=== PATIENT | female | born 1960 | race Two or more races ===

== ENCOUNTER 2018-06-26 10:49 | Emergency (ER) | payer SELFPAY ==
[2018-06-26 11:00] VITALS: BMI 25.6
[2018-06-26] MEDS ORDERED: ACETAMINOPHEN 1000 MG/100 ML VIAL (NON FORMULARY) IVPB ONE (11:26)
[2018-06-26] MEDS ORDERED: ONDANSETRON 4 MG/2 ML VIAL IVPUSH ONE (11:28)
[2018-06-26] MEDS ORDERED: ACETAMINOPHEN INJECTION 100 ML IVPB ONE (11:37)
[2018-06-26] MEDS ORDERED: ONDANSETRON 4 MG/2 ML VIAL ONE (11:37)
--- NOTE | 2018-06-26 11:37 | PDOC ---
History of Present Illness <Leticia Simms - Last Filed: 06/26/18 15:34> - General History Source: Patient Exam Limitations: No Limitations - History of Present Illness Initial Comments: 06/26/18 11:30 This is a 57 YOF with h/o known gallbladder stones, appendectomy, GERD, and asthma, who p/w RUQ and epigastric pain fluctuating since yesterday morning, now at 4/10 and radiating up to her throat. She notes that the throat pain feels the same as her prior GERD and feels like a burning, but the abdominal pain is sharp. She late ate yesterday and has vomited about 10 times since yesterday (NBNB) and additionally feels lightheaded. She has not taken any medications for the pain this morning. She denies f/c, diarrhea, constipation, black/bloody stool, shortness of breath, or other symptoms, headache, vision changes, n/t/w, or other symptoms. <Eden Tirado - Last Filed: 06/26/18 18:20> - General Chief Complaint: Lightheaded Stated Complaint: DIZZINESS,VOMITING Time Seen by Provider: 06/26/18 11:18 Past History <Leticia Simms - Last Filed: 06/26/18 15:34> - Past Medical History Asthma: Yes COPD: No GI Disorders: (gallstones) Hypercholesterolemia: Yes - Suicide/Smoking/Psychosocial Hx Smoking History: Never smoked Hx Alcohol Use: No Drug/Substance Use Hx: No <Eden Tirado - Last Filed: 06/26/18 18:20> - Past Medical History Allergies/Adverse Reactions: Allergies Allergy/AdvReac Type Severity Reaction Status Date / Time No Known Allergies Allergy Verified 06/26/18 11:00 Home Medications: Ambulatory Orders Albuterol Sulfate Inhaler - [Ventolin Hfa Inhaler -] 1 - 2 inh PO Q4H PRN Montelukast Sodium [Singulair] 10 mg PO DAILY 06/26/18 Ondansetron [Ondansetron Odt] 8 mg PO BID PRN #10 tab.rapdis 06/26/18 Review of Systems - Review of Systems Able to Perform ROS?: Yes Constitutional: No: Chills, Fever, Unexplained wgt Loss HEENTM: Yes: Throat Pain (burning). No: Nose Congestion Respiratory: No: Cough, Shortness of Breath Cardiac (ROS): Yes: Lightheadedness. No: Chest Pain, Palpitations ABD/GI: Yes: Nausea, Poor Appetite, Vomiting, Other (upper abdominal pain). No : Constipated, Diarrhea : No: Burning, Dysuria Musculoskeletal: No: Back Pain, Neck Pain Integumentary: No: Bruising, Rash Neurological: No: Headache, Numbness, Tingling, Weakness, Dizziness Endocrine: No: Unexplained Weight Gain, Unexplained Weight Loss <Eden Tirado - Last Filed: 06/26/18 18:20> *Physical Exam - Vital Signs Last Vital Signs Temp Pulse Resp BP Pulse Ox 98 F 73 18 120/72 97 06/26/18 13:33 06/26/18 13:42 06/26/18 13:42 06/26/18 13:42 06/26/18 13:42 <Leticia Simms - Last Filed: 06/26/18 15:34> - Vital Signs Last Vital Signs Temp Pulse Resp BP Pulse Ox 98.2 F 89 18 128/78 93 L 06/26/18 10:57 06/26/18 10:57 06/26/18 10:57 06/26/18 10:57 06/26/18 10:57 06/26/18 11:46 GENERAL: nontoxic and well-appearing, nourished, A/Ox4, slightly uncomfortable appearing and standing during H&P but in no distress, speaking in full sentences in Divehi, answers questions appropriately, accompanied by daughter HEENT: PERRLA, EOMI, moist mucous membranes, no posterior pharyngeal erythema, no tonsillar swelling or exudates, no cervical lymphadenopathy NECK: No cervical spine midline ttp or stepoff or deformity, full ROM, supple CARDIOVASCULAR: Regular rate and rhythm, normal S1S2, no MGR, radial and DP pulses 2+ and symmetric, capillary refill <2 seconds, extremities warm and well- perfused Chest wall: Normal appearance, no rash, no bruising, no costal stepoff or deformity, nontender to compression LUNGS/RESPIRATORY: No respiratory distress, normal and symmetric chest movements during respirations, lungs CTA bilaterally, equal breath sounds, no cyanosis, no nail clubbing GI/ABDOMEN: Normal symmetric appearance, normoactive bowel sounds, soft, mild RUQ and epigastric tenderness to palpation, positive Mancilla's sign, no midline pulsatile masses, no palpated organomegaly : No CVA tenderness BACK: No midline ttp or stepoff or deformity of thoracic or lumbar spine EXTREMITIES: distal pulses 2+, warm and well-perfused, no LE edema SKIN: Warm and dry, no pallor, no jaundice, no bruising, no rash, no skin breakdown, no cuts, no lesions NEUROLOGICAL: GCS 15, CN II-XII grossly intact, ambulating with normal gait, moving all extremities, 5/5 strength proximally and distally, no facial droop, no decreased sensation <Tirado,Eden - Last Filed: 06/26/18 18:20> Heart Score/ECG Review #1 Sinus rhythm, rate of 73, normal axis and intervals, TWI in III, no ischemic ST- T changes <CelestinoEden - Last Filed: 06/26/18 18:20> ED Treatment Course - LABORATORY CBC & Chemistry Diagram: 06/26/18 11:50 06/26/18 11:50 - ADDITIONAL ORDERS Additional order review: Laboratory Results 06/26/18 06/26/18 12:40 11:50 Sodium 137 Potassium 4.1 Chloride 105 Carbon Dioxide 26 Anion Gap 6 L BUN 11 Creatinine 0.6 Creat Clearance w eGFR > 60 Random Glucose 95 Calcium 8.6 Phosphorus 3.3 Magnesium 2.0 Total Bilirubin 0.6 AST 20 ALT 31 Alkaline Phosphatase 115 Troponin I < 0.02 Total Protein 6.9 Albumin 3.7 Lipase 80 Urine Color Ltyellow Urine Appearance Clear Urine pH 7.0 Ur Specific [place] 1.015 Urine Protein Negative Urine Glucose (UA) Negative Urine Ketones Trace H Urine Blood Negative Urine Nitrite Negative Urine Bilirubin Negative Urine Urobilinogen Negative Ur Leukocyte Esterase Negative 06/26/18 11:50 RBC 4.36 MCV 88.7 MCHC 33.1 RDW 13.5 MPV 8.0 Neutrophils % 72.7 Lymphocytes % 21.6 Monocytes % 4.8 Eosinophils % 0.3 Basophils % 0.6 - Medications Given in the ED: ED Medications Discontinued Medications Generic Name Dose Route Start Last Admin Trade Name Freq PRN Reason Stop Dose Admin Acetaminophen 1,000 mg 06/26/18 11:26 06/26/18 11:47 Ofirmev Injection - IVPB 06/26/18 11:27 1,000 mg ONCE ONE Administration Famotidine/Sodium Chloride 20 mg in 50 mls @ 100 mls/hr 06/26/18 11:48 11:57 Pepcid 20 Mg Premixed Ivpb - IVPB 06/26/18 12:17 100 mls/hr ONCE ONE Administration Ondansetron HCl 8 mg 06/26/18 11:28 06/26/18 11:56 Zofran Injection IVPUSH 06/26/18 11:29 8 mg ONCE ONE Administration Sodium Chloride 1,000 ml 06/26/18 11:48 06/26/18 11:56 Normal Saline - IV 06/26/18 11:49 1,000 ml ONCE ONE Administration - Consult/PCP Time Called: 14:25 (Called Dr. Arellano service, service alerted Dr. Arellano and stated that he will call back in a few minutes. ) - Additional Consults Time Called: 13:51 (Called Dr. Arellano service (surgery), left a message) Time Called: 14:05 (Paged Dr. Arellano overhead ) <Leticia Simms - Last Filed: 06/26/18 15:34> - LABORATORY CBC & Chemistry Diagram: 06/26/18 11:50 06/26/18 11:50 - RADIOLOGY Radiology Studies Ordered: Category Date Time Status GALLBLADDER US [US] Stat Ultrasound 06/26/18 11:26 Ordered <Eden Tirado - Last Filed: 06/26/18 18:20> Medical Decision Making - Medical Decision Making 06/26/18 11:47 Adult female Pt p/w RUQ abdominal pain. Initial Vital Signs Temp Pulse Resp BP Pulse Ox 98.2 F 89 18 128/78 93 L 06/26/18 10:57 06/26/18 10:57 06/26/18 10:57 06/26/18 10:57 06/26/18 10:57 Exam: As noted in Physical Exam section. DDX IBNLT: cholecystitis (calculous vs.acalculous), choledocholithiasis, cholangitis, pancreatitis, appendicitis, gastritis, PUD, colitis, diverticulitis wwo abscess or perforation, AAA/AD, ACS, renal colic, obstructive uropathy, UTI/pyelonephritis, hernia, SBO, mesenteric/bowel ischemia , bowel perforation, malignancy, ovarian torsion, ovarian cyst, PID, TOA, cervicitis, endometritis, salpingitis, oophoritis, constipation, gas, musculoskeletal, etc. W/U ordered: Labs as noted below, EKG, RUQ US TX ordered: IVF Shruti Brewster EKG: Reviewed; results as noted in ECG Review section. US/ABDOMEN US -LIMITED HISTORY PROVIDED: Right upper quadrant pain. Real time examination of the abdomen demonstrates the following: The gallbladder is normal in size and does contain multiple calculi. There is no evidence of intra or extrahepatic biliary duct dilatation. The liver is normal in size with no intrahepatic masses seen. Hepatopedal flow is documented within the main portal vein. The pancreas is normal in size and texture with no pancreatic masses identified. The tail of the pancreas was not well visualized due to overlying bowel gas. There is no evidence of hydronephrosis or acute abnormalities of the right kidney. There is no evidence of AAA. The IVC is patent. IMPRESSION: Essentially normal abdominal sonogram. Laboratory Tests 06/26/18 06/26/18 06/26/18 11:50 11:50 12:40 WBC 7.3 RBC 4.36 Hgb 12.8 Hct 38.7 MCV 88.7 MCH 29.3 MCHC 33.1 RDW 13.5 Plt Count 255 MPV 8.0 Absolute Neuts (auto) 5.3 Neutrophils % 72.7 Lymphocytes % 21.6 Monocytes % 4.8 Eosinophils % 0.3 Basophils % 0.6 Nucleated RBC % 0 Sodium 137 Potassium 4.1 Chloride 105 Carbon Dioxide 26 Anion Gap 6 L BUN 11 Creatinine 0.6 Creat Clearance w eGFR > 60 Random Glucose 95 Calcium 8.6 Phosphorus 3.3 Magnesium 2.0 Total Bilirubin 0.6 AST 20 ALT 31 Alkaline Phosphatase 115 Troponin I < 0.02 Total Protein 6.9 Albumin 3.7 Lipase 80 Urine Color Ltyellow Urine Appearance Clear Urine pH 7.0 Ur Specific [place] 1.015 Urine Protein Negative Urine Glucose (UA) Negative Urine Ketones Trace H Urine Blood Negative Urine Nitrite Negative Urine Bilirubin Negative Urine Urobilinogen Negative Ur Leukocyte Esterase Negative Reassessment: Patient still mildly tender on repeat exam, states pain has improved, still small amount residual pain. Vital Signs Temperature 98 F 06/26/18 13:33 Pulse Rate 73 06/26/18 13:42 Respiratory Rate 18 06/26/18 13:42 Blood Pressure 120/72 06/26/18 13:42 O2 Sat by Pulse Oximetry (%) 97 06/26/18 13:[address] Donato who notes no GB wall thickening, pericholecystic fluid , significant GB distention, etc. Very little concern for cholecystitis or choledocholithiasis at this time based on this study. Patient states pain resolved, repeat exam is benign, comfortable going home. She states she is mildly dizzy, she get this symptom frequently and it is no different now than prior. She requests meclizine as she states this has provided her relief in the past. She also is not vomiting, has tolerated PO orange juice and turkey sandwich. Vital Signs Temperature 98 F 06/26/18 13:33 Pulse Rate 70 06/26/18 16:35 Respiratory Rate 16 06/26/18 16:35 Blood Pressure 142/76 06/26/18 16:35 O2 Sat by Pulse Oximetry (%) 97 06/26/18 16:35 The Pt has gotten significant relief of symptoms while in the ED. Workup is not concerning for emergency-level pathology at this time. They are appropriate for discharge with close outpatient follow up. They are comfortable with this plan and will follow up with their primary care provider in 1-3 days. They will take Motrin and/or Tylenol for pain. Referral information is given for Dr. Arellano. Specific return precautions are discussed and they will come back to the ER if necessary. <TiradoEden - Last Filed: 06/26/18 18:20> *DC/Admit/Observation/Transfer <Leticia Simms - Last Filed: 06/26/18 15:34> - Discharge Dispostion Decision to Admit order: No <Tirado,Eden - Last Filed: 06/26/18 18:20> Diagnosis at time of Disposition: Lightheadedness Abdominal pain Qualifiers: Abdominal location: unspecified location Qualified Code(s): R10.9 - Unspecified abdominal pain Vomiting Qualifiers: Vomiting type: unspecified Vomiting Intractability: non-intractable Nausea presence: with nausea Qualified Code(s): R11.2 - Nausea with vomiting, unspecified Cholelithiasis Qualifiers: Cholelithiasis location: gallbladder Cholecystitis presence: without cholecystitis Biliary obstruction: with biliary obstruction Qualified Code(s): K80.21 - Calculus of gallbladder without cholecystitis with obstruction - Discharge Dispostion Disposition: HOME Condition at time of disposition: Stable - Prescriptions Prescriptions: Ondansetron [Ondansetron Odt] 8 mg PO BID PRN #10 tab.rapdis PRN Reason: Nausea And/Or Vomiting - Referrals Referrals: Blake Brownlee [Primary Care Provider] - Jeffrey Arellano MD [Staff Physician] - - Patient Instructions Printed Discharge Instructions: DI for Abdominal Pain-Adult Additional Instructions: YOU WERE SEEN IN THE ER FOR ABDOMINAL PAIN. WE DID AN EXAM, LABS, AN ULTRASOUND , AND AN ELECTROCARDIOGRAM. WE GAVE YOU MEDICINES WHICH DID HELP YOUR SYMPTOMS. AFTER OUR ASSESSMENT, WE DO NOT BELIEVE YOU ARE HAVING A MEDICAL EMERGENCY AT THIS TIME, AND WE BELIEVE YOU ARE SAFE TO GO HOME. PLEASE FOLLOW UP WITH YOUR REGULAR PCP IN 1-3 DAYS. CALL THEIR CLINIC, TELL THEM YOU WERE SEEN IN THE ER, AND TELL THEM YOU NEED A FOLLOW-UP. YOU SHOULD ALSO FOLLOW UP WITH OUR SURGEON DR. ARELLANO, WHOSE INFORMATION WE ARE INCLUDING IN THIS PACKET. PLEASE CALL HIS OFFICE AND MAKE AN APPOINTMENT FOR NEXT WEEK TO TALK ABOUT YOUR GALLBLADDER BECAUSE YOU DO HAVE GALLBLADDER STONES. PLEASE TAKE TYLENOL AND NAPROXEN FOR PAIN, AND TAKE ZOFRAN FOR NAUSEA/VOMITING (WE ARE SENDING AN ELECTRONIC PRESCRIPTION TO YOUR PHARMACY). IF YOU HAVE ANY NEW OR WORSENING SYMPTOMS ( ESPECIALLY FEVER, YELLOWISH COLORATION OF YOUR SKIN, VOMITING THAT YOU CANNOT CONTROL WITH THE ZOFRAN, BLOOD IN THE VOMIT, WHITE OR BLOODY STOOL, OR WORSENING ABDOMINAL PAIN THAT YOU CANNOT CONTROL WITH TYLENOL AND NAPROXEN) PLEASE COME BACK TO THE ER AT ANY TIME (24 HOURS A DAY). IF YOU ARE HAVING SEVERE OR LIFE THREATENING SYMPTOMS, OR SYMPTOMS THAT MAKE IT UNSAFE TO DRIVE OR HAVE SOMEONE DRIVE YOU, PLEASE CALL 911. PLEASE RECOVERER YOUR ZOFRAN AT THE [facility] ON [facility] ABOUT [address] AWAY. Print Language: IRISH - Post Discharge Activity Forms/Work/School Notes: Back to Work
[2018-06-26] MEDS ORDERED: FAMOTIDINE 20 MG/50 ML IVPB 20 MG/50 ML MG IVPB ONE (11:48)
[2018-06-26] MEDS ORDERED: SODIUM CHLORIDE 0.9% 500 ML INFUS.BAG IV ONE (11:48)
[2018-06-26 12:01] LABS: BASO % 0.6 % (0-2.0); EOS % 0.3 % (0-4.5); HEMATOCRIT 38.7 % (32.4-45.2); HEMOGLOBIN 12.8 GM/dL (10.7-15.3); LYMPH % 21.6 % (8-40); MCH 29.3 pg (25.7-33.7); MCHC 33.1 g/dl (32.0-36.0); MEAN CELL VOLUME 88.7 fl (80-96); MONO % 4.8 % (3.8-10.2); NEUT % 72.7 % (42.8-82.8); PLATELET COUNT 255 K/MM3 (134-434); RBC 4.36 M/mm3 (3.60-5.2); RDW 13.5 % (11.6-15.6); WHITE BLOOD COUNT 7.3 K/mm3 (4.0-10.0)
--- NOTE | 2018-06-26 12:07 | PDOC ---
Attending Attestation - Resident Resident Name: Tirado,Eden - ED Attending Attestation I have performed the following: I have examined & evaluated the patient, The case was reviewed & discussed with the resident, I agree w/resident's findings & plan, Exceptions are as noted - HPI HPI: 06/26/18 12:04 57-year-old female with history of asthma, hyperlipidemia, biliary colic, hyperlipidemia presents with right upper quadrant pain since yesterday. The patient reported persistent pain with nausea and multiple episodes of vomiting. No fevers or chills. Decreased appetite endorsed. - Physicial Exam PE: 06/26/18 12:05 GENERAL: Awake, alert, and fully oriented, in no acute distress HEAD: No signs of trauma EYES: EOMI, sclera anicteric, conjunctiva clear ENT: Auricles normal inspection, hearing grossly normal, nares patent,Moist mucosa NECK: Normal ROM, supple ABDOMEN: Soft, No guarding, no rebound. No masses. TTP RUQ. Mancilla sign positive. EXTREMITIES: Normal range of motion, no edema. No clubbing or cyanosis. No cords, erythema, or tenderness NEUROLOGICAL: Cranial nerves II through XII grossly intact. Normal speech, normal gait SKIN: Warm, Dry, normal turgor, no rashes or lesions noted. - Medical Decision Making 06/26/18 12:42 Vital Signs Temp Pulse Resp BP Pulse Ox 98.2 F 89 18 128/78 93 L 06/26/18 10:57 06/26/18 10:57 06/26/18 10:57 06/26/18 10:57 06/26/18 10:57 I suspect patient likely has biliary colic versus gastritis versus pancreatitis versus less likely acute corner syndrome. We'll obtain labs, urinalysis, right upper quadrant ultrasound. EKG is unremarkable and reassuring. Pain control, reassess. 06/26/18 13:56 CBC, BMP 06/26/18 11:50 06/26/18 11:50 CMP Sodium 137 mmol/L (136-145) 06/26/18 11:50 Potassium 4.1 mmol/L (3.5-5.1) 06/26/18 11:50 Chloride 105 mmol/L (98-107) 06/26/18 11:50 Carbon Dioxide 26 mmol/L (21-32) 06/26/18 11:50 Anion Gap 6 MMOL/L (8-16) L 06/26/18 11:50 BUN 11 mg/dL (7-18) 06/26/18 11:50 Creatinine 0.6 mg/dL (0.55-1.3) 06/26/18 11:50 Creat Clearance w eGFR > 60 (>60) 06/26/18 11:50 Random Glucose 95 mg/dL (74-106) 06/26/18 11:50 Calcium 8.6 mg/dL (8.5-10.1) 06/26/18 11:50 Phosphorus 3.3 mg/dL (2.5-4.9) 06/26/18 11:50 Magnesium 2.0 mg/dL (1.8-2.4) 06/26/18 11:50 Total Bilirubin 0.6 mg/dL (0.2-1) 06/26/18 11:50 AST 20 U/L (15-37) 06/26/18 11:50 ALT 31 U/L (13-61) 06/26/18 11:50 Alkaline Phosphatase 115 U/L (45-117) 06/26/18 11:50 Troponin I < 0.02 ng/ml (0.00-0.05) 06/26/18 11:50 Total Protein 6.9 g/dl (6.4-8.2) 06/26/18 11:50 Albumin 3.7 g/dl (3.4-5.0) 06/26/18 11:50 Lipase 80 U/L (73-393) 06/26/18 11:50 Urine Test Results Urine Color Ltyellow 06/26/18 12:40 Urine Appearance Clear 06/26/18 12:40 Urine pH 7.0 (5.0-8.0) 06/26/18 12:40 Ur Specific [place] 1.015 (1.001-1.035) 06/26/18 12:40 Urine Protein Negative (NEGATIVE) 06/26/18 12:40 Urine Glucose (UA) Negative (NEGATIVE) 06/26/18 12:40 Urine Ketones Trace (NEGATIVE) H 06/26/18 12:40 Urine Blood Negative (NEGATIVE) 06/26/18 12:40 Urine Nitrite Negative (NEGATIVE) 06/26/18 12:40 Urine Bilirubin Negative (<2.0 mg/dL) 06/26/18 12:40 Ur Leukocyte Esterase Negative (NEGATIVE) 06/26/18 12:40 Ultrasound demonstrates gallstones but no evidence of acute cholecystitis. Pt reports feeling well and without pain. Will discharge as biliary colic. Will give referral to general surgery. Heart Score/ECG Review #1 ECG reviewed & interpreted by me at: 12:00 06/26/18 12:02 NSR 73, TWI III, no std/butch, normal axis, normal intervals, QTC 420 msec
[2018-06-26 12:31] LABS: ALBUMIN 3.7 g/dl (3.4-5.0); ALK PHOS 115 U/L (45-117); ANION GAP 6 MMOL/L (8-16); BILIRUBIN,TOTAL 0.6 mg/dL (0.2-1); BLOOD UREA NITROGEN 11 mg/dL (7-18); CALCIUM 8.6 mg/dL (8.5-10.1); CHLORIDE 105 mmol/L (98-107); CO2 26 mmol/L (21-32); CREATININE 0.6 mg/dL (0.55-1.3); GLUCOSE,RANDOM 95 mg/dL (74-106); LIPASE 80 U/L (73-393); PHOSPHOROUS 3.3 mg/dL (2.5-4.9); POTASSIUM 4.1 mmol/L (3.5-5.1); SGOT/AST 20 U/L (15-37); SGPT/ALT 31 U/L (13-61); SODIUM 137 mmol/L (136-145); TOT PROT 6.9 g/dl (6.4-8.2)
[2018-06-26 12:56] LABS: URINE APPEARANCE CLEAR; URINE BILIRUBIN NEGATIVE (<2.0 mg/dL); URINE COLOR LTYELLOW; URINE GLUCOSE (UA) NEGATIVE (NEGATIVE); URINE KETONE TRACE (NEGATIVE); URINE LEUK ESTERASE NEGATIVE (NEGATIVE); URINE NITRITE NEGATIVE (NEGATIVE); URINE PROTEIN NEGATIVE (NEGATIVE); URINE UROBILINOGEN NEGATIVE mg/dL (0.2-1.0)
[2018-06-26 13:34] VITALS: TEMP 98
[2018-06-26] MEDS ORDERED: MECLIZINE HCL 25 MG TABLET (FP) PO ONE (15:44)
[2018-06-26] MEDS ORDERED: MECLIZINE HCL 25 MG TABLET (FP) ONE (15:48)
[2018-06-26 16:50] VITALS: BP 142/76; PULSE 70
--- NOTE | 2018-06-27 15:39 | EKG ---
Test Reason : Blood Pressure : / mmHG Vent. Rate : 073 BPM Atrial Rate : 073 BPM P-R Int : 124 ms QRS Dur : 082 ms QT Int : 382 ms P-R-T Axes : 037 009 007 degrees QTc Int : 420 ms NORMAL SINUS RHYTHM NORMAL ECG NO PREVIOUS ECGS AVAILABLE Confirmed by MD Ferrer Daniel ([id number]) on 06/27/2018 3:38:58 PM Referred By: Confirmed By:Ambrose Ferrer MD
== END 2018-06-26 16:51 | disposition home or self-care (01) ==
LOC: JER 10:49
PROC: 3E0337Z Introduction of Electrolytic and Water Balance Substance into Peripheral Vein, Percutaneous Approach (ICD-10-PCS; principal; 2018-06-26)
PROC: 3E033NZ Introduction of Analgesics, Hypnotics, Sedatives into Peripheral Vein, Percutaneous Approach (ICD-10-PCS; 2018-06-26)
PROC: 3E033GC Introduction of Other Therapeutic Substance into Peripheral Vein, Percutaneous Approach (ICD-10-PCS; 2018-06-26)
DX: R42 Dizziness and giddiness (principal); R11.2 Nausea with vomiting, unspecified; K80.21 Calculus of gallbladder without cholecystitis with obstruction; R10.9 Unspecified abdominal pain
CPT/HCPCS: 36415; 76705-TC; 80053; 81003; 83690; 83735; 84100; 84484; 85025; 87086; 93005; 93010; 99285-25; J0131

== ENCOUNTER 2019-11-09 09:48 | Emergency (ER) | payer OTHER ==
[2019-11-09 10:16] VITALS: BP 120/67; PULSE 85; TEMP 98; BMI 25.2
--- NOTE | 2019-11-09 12:08 | PDOC ---
History of Present Illness - General Chief Complaint: Cold Symptoms Stated Complaint: CHEST AND LEG PAINA COLD SYMPTOMS Time Seen by Provider: 11/09/19 11:17 - History of Present Illness Initial Comments: 11/09/19 12:06 59-year-old female presents for evaluation of cough and flulike symptoms x8 days Past History - Past Medical History Allergies/Adverse Reactions: Allergies Allergy/AdvReac Type Severity Reaction Status Date / Time No Known Allergies Allergy Verified 11/09/19 10:09 Home Medications: Ambulatory Orders Albuterol Sulfate Inhaler - [Ventolin Hfa Inhaler -] 1 - 2 inh PO Q4H PRN Fluticasone/Salmeterol [Advair 250-50 Diskus] 1 each IH BID 11/09/19 Montelukast Na [Singulair -] 10 mg PO HS 11/09/19 Ranitidine HCl 150 mg PO BID 11/09/19 Asthma: Yes COPD: No GI Disorders: (gallstones) Hypercholesterolemia: Yes - Psycho Social/Smoking Cessation Hx Smoking History: Never smoked Hx Alcohol Use: No Drug/Substance Use Hx: No Review of Systems - Review of Systems Constitutional: Yes: Chills, Fever, Malaise, Night Sweats HEENTM: Yes: Nose Congestion Respiratory: Yes: Cough *Physical Exam - Vital Signs Last Vital Signs Temp Pulse Resp BP Pulse Ox 98 F 85 18 120/67 96 11/09/19 10:15 11/09/19 10:15 11/09/19 10:15 11/09/19 10:15 11/09/19 10:15 - Physical Exam 11/09/19 12:06 GENERAL: The patient is awake, alert, and fully oriented, in no acute distress. HEAD: Normal with no signs of trauma. EYES: sclera anicteric, conjunctiva clear. ENT: Ears normal tympanic membranes normal oropharynx clear uvula midline NECK: Normal range of motion LUNGS: Breath sounds equal, clear to auscultation bilaterally. No wheezes, and no crackles. HEART: S1 and S2 without murmur, rub or gallop. ABDOMEN: Soft, nontender, normoactive bowel sounds. No guarding, no rebound. No masses. EXTREMITIES: Normal range of motion, no edema. No clubbing or cyanosis. No cords, erythema, or tenderness. NEUROLOGICAL: Cranial nerves II through XII grossly intact. PSYCH: Normal mood, normal affect. SKIN: Warm, Dry, normal turgor, no rashes or lesions noted. ED Treatment Course - RADIOLOGY Radiology Studies Ordered: Category Date Time Status CHEST PA & LAT [RAD] Stat Radiology 11/09/19 11:30 Completed Medical Decision Making - Medical Decision Making 11/09/19 12:07 No infiltrate on chest x-ray follow-up with primary care physician supportive care for viral upper respiratory infection Discharge - Discharge Information Problems reviewed: Yes Clinical Impression/Diagnosis: Viral URI with cough Condition: Stable - Admission No - Follow up/Referral Referrals: Vani Gaona MD [Staff Physician] - - Patient Discharge Instructions Patient Printed Discharge Instructions: DI for Viral Upper Respiratory Infection -- Adult Additional Instructions: Your chest x-ray was negative for pneumonia today. Tylenol and Motrin for fevers as directed. Please return to the emergency room for worsening symptoms and without fail follow-up with your primary care physician in 1 to 2 days for further evaluation and treatment options. - Post Discharge Activity
== END 2019-11-09 12:13 | disposition home or self-care (01) ==
LOC: JERFT 09:48
DX: J06.9 Acute upper respiratory infection, unspecified (principal); B97.89 Other viral agents as the cause of diseases classified elsewhere
CPT/HCPCS: 71046-TC-FY; 99282-25

== ENCOUNTER 2019-11-26 18:48 | Emergency (ER) | payer OTHER ==
--- NOTE | 2019-11-26 19:03 | PDOC ---
Rapid Medical Evaluation Time Seen by Provider: 11/26/19 18:50 Medical Evaluation: Allergies Allergy/AdvReac Type Severity Reaction Status Date / Time No Known Allergies Allergy Verified 11/09/19 10:09 11/26/19 18:50 CC: pain at trochar site s/p Lap choley PE: multiple resolving ecchymotic areas to abdomen at trochar sites. Tender over ecchymosis Orders: nothing Patient will proceed to ED for evaluation. Discharge Disposition - Diagnosis Abdominal wall pain - Referrals - Patient Instructions - Post Discharge Activity
[2019-11-26 19:04] VITALS: BP 155/53; PULSE 91; TEMP 98; BMI 26.4
--- NOTE | 2019-11-26 19:45 | PDOC ---
History of Present Illness - General Chief Complaint: Pain Stated Complaint: ABDOMINAL PAIN Time Seen by Provider: 11/26/19 18:50 History Source: Patient Exam Limitations: No Limitations - History of Present Illness Initial Comments: 11/26/19 19:45 59yF w PMHx asthma presenting w 3d subjective fevers, moderate ABD pain, tenderness, erythema at all of her trochar sites s/p lap cholecystectomy at [facility]. No discharge/bleeding from sites. Took oxycodone without relief. Doesn't remember surgeon's name, paperwork lists Dr Mitch Costello and Dr Ruffin as f/u physicians. Still tolerating PO fluids /food. Denies nausea/vomiting, chest pain/SOB, urinary/bowel mvmt changes. Past History - Past Medical History Allergies/Adverse Reactions: Allergies Allergy/AdvReac Type Severity Reaction Status Date / Time No Known Allergies Allergy Verified 11/26/19 19:04 Home Medications: Ambulatory Orders Albuterol Sulfate Inhaler - [Ventolin Hfa Inhaler -] 1 - 2 inh PO Q4H PRN Fluticasone/Salmeterol [Advair 250-50 Diskus] 1 each IH BID 11/09/19 Montelukast Na [Singulair -] 10 mg PO HS 11/09/19 Ranitidine HCl 150 mg PO BID 11/09/19 Asthma: Yes COPD: No GI Disorders: (gallstones) Hypercholesterolemia: Yes - Psycho Social/Smoking Cessation Hx Smoking History: Never smoked Have you smoked in the past 12 months: No Information on smoking cessation initiated: No Hx Alcohol Use: No Drug/Substance Use Hx: No Review of Systems - Review of Systems Constitutional: Yes: Fever. No: Chills HEENTM: No: Eye Pain, Nose Pain Respiratory: No: Cough, Shortness of Breath Cardiac (ROS): No: Chest Pain, Palpitations ABD/GI: No: Abdominal Distended, Constipated, Diarrhea, Nausea, Vomiting : No: Burning, Dysuria Musculoskeletal: No: Back Pain, Joint Pain Integumentary: No: Bruising, Flushing Neurological: No: Headache, Seizure Psychiatric: No: Anxiety, Depression Endocrine: No: Intolerance to Cold, Intolerance to Heat Hematologic/Lymphatic: No: Anemia, Blood Clots *Physical Exam - Vital Signs Last Vital Signs Temp Pulse Resp BP Pulse Ox 98.0 F 91 H 17 155/53 L 100 11/26/19 19:01 11/26/19 19:01 11/26/19 19:01 11/26/19 19:01 11/26/19 19:01 - Physical Exam General Appearance: Yes: Nourished, Appropriately Dressed, Mild Distress HEENT: positive: EOMI, STEVEN, Normal Voice, Hearing Grossly Normal, Other (L subconjunctival hemorrhage). negative: Scleral Icterus (R), Scleral Icterus (L) Respiratory/Chest: positive: Lungs Clear, Normal Breath Sounds. negative: Chest Tender, Respiratory Distress Cardiovascular: positive: Regular Rhythm, Regular Rate, S1, S2. negative: Edema , Murmur Gastrointestinal/Abdominal: positive: Normal Bowel Sounds, Tender (tender/warm/ erythematous over trochar sites), Flat, Soft. negative: Organomegaly Integumentary: positive: Normal Color. negative: Dry Neurologic: positive: car bracer II-XII NML intact, Fully Oriented, Alert, Normal Response, Responsive. negative: Sensory Deficit, Confused, Disoriented ED Treatment Course - LABORATORY CBC & Chemistry Diagram: 11/26/19 20:43 11/26/19 20:43 Medical Decision Making - Medical Decision Making 11/26/19 20:02 CT A/P - moderate colonic fecal retention, slight dilation of several distal ileal bowel loops w increased intraluminal density consistent w fecalization --- 59yF w PMHx asthma presenting w 3d subjective fevers ABD pain, tenderness, erythema at trochar sites s/p lap cholecystectomy 11/23/19 at [facility] likely d/t constipation (CT). Low concern for ABD infection ( afebrile, normal WBC) vs bleed vs SBO (non distended) Given 4 morphine, zosyn, glycerin. Discussed w Dr Montanez gen surg at [facility], low concern for emergent transfer DC home w Dr krause/lashae and instructions to go to [place] if concerning symptoms Discharge - Discharge Information Problems reviewed: Yes Clinical Impression/Diagnosis: Abdominal wall pain Constipation Qualifiers: Constipation type: unspecified constipation type Qualified Code(s): K59.00 - Constipation, unspecified Condition: Stable Disposition: HOME - Follow up/Referral - Patient Discharge Instructions Patient Printed Discharge Instructions: DI for Abdominal Pain-Adult Additional Instructions: Follow up with your [facility] doctor listed in your surgery paperwork Go to [facility] in [place] if you have worsening abdominal pain or fever --- Erick un seguimiento con arevalo mdico del [facility] que figura en arevalo documentacin de ciruga Vaya al [facility] en [place] si empeora el dolor abdominal o la fiebre. Print Language: HUNGARIAN - Post Discharge Activity
[2019-11-26] MEDS ORDERED: PIPERACILLIN/TAZOB 4.5 GM 4.5 GM in DEXTROSE 5%-WATER 100 ML IVPB ONE (20:01)
[2019-11-26] MEDS ORDERED: morphine CARPU-JECT 4 MG/1 ML DISP.SYRIN IVPUSH ONE (20:01)
--- NOTE | 2019-11-26 20:06 | PDOC ---
*Physical Exam - Vital Signs Last Vital Signs Temp Pulse Resp BP Pulse Ox 98.0 F 91 H 17 155/53 L 100 11/26/19 19:01 11/26/19 19:01 11/26/19 19:01 11/26/19 19:01 11/26/19 19:01 ED Treatment Course - LABORATORY CBC & Chemistry Diagram: 11/26/19 20:43 11/26/19 20:43 Medical Decision Making - Medical Decision Making 11/26/19 20:29 Patient seen as pre-attending w/Dr. Willis (Attending) and Dr. Gallardo (PGY-1) 59 y/o female s/p lap alesia on Friday (11/23) here with no BM since surgery VSS 5 wounds, with some ecchymotic changes Will obtain labs and CTAP to r/o SBO, hematoma Dr. Gallardo discussed case w/patient's surgeon requests CTAP and transfer 11/26/19 23:54 LFT's, Alk Phos elevated c/w previous surgery CTAP shows CBD dilitation to 0.7 cm - physiologic post surgical vs. mild pathologic distension Dr. Willis discussed case w/general surgeon. Will d/c Discharge - Discharge Information Problems reviewed: Yes Clinical Impression/Diagnosis: Abdominal wall pain Constipation Qualifiers: Constipation type: unspecified constipation type Qualified Code(s): K59.00 - Constipation, unspecified Condition: Stable Disposition: HOME - Follow up/Referral - Patient Discharge Instructions Patient Printed Discharge Instructions: DI for Abdominal Pain-Adult Additional Instructions: Follow up with your [facility] doctor listed in your surgery paperwork Go to [facility] in [place] if you have worsening abdominal pain or fever --- Erick un seguimiento con arevalo mdico del [facility] que figura en arevalo documentacin de ciruga Vaya al [facility] en [place] si empeora el dolor abdominal o la fiebre. Print Language: SYRIAN - Post Discharge Activity
[2019-11-26] MEDS ORDERED: morphine SULFATE 4 MG/ML VIAL ONE (20:20)
[2019-11-26] MEDS ORDERED: PIPERACILLIN/TAZOB 4.5 GM 4.5 GM/100 ML BAG IVPB ONE (20:20)
--- NOTE | 2019-11-26 20:41 | PDOC ---
Attending Attestation - Resident Resident Name: Bj Seth - ED Attending Attestation I have performed the following: I have examined & evaluated the patient, The case was reviewed & discussed with the resident, I agree w/resident's findings & plan - HPI HPI: 11/26/19 20:40 Pt is post op ([facility] laparoscopic cholecystectomy done on 11/23) and she comes with abd pain. She has bruises on her abdomen. was told by someone in the hospital that if she had hematoma around the cuts on her abdomen , then she should seek medical attention. Pt has been eating (today had carrots, potato puree and some chicken) but not having bowel movements. Pt's last BM was Friday. Pt is taking oxycodone 5mg Q4-6 hrs for pain. 11/26/19 21:02 - Physicial Exam PE: 11/26/19 21:05 Afebrile VSS HEENT normal; left eye lateral NAIMA heart RRR Lungs Clear Abd no guarding no rebound, bruisong at surg sites; healing wounds. No dehiscence Pt has normal Bowel sounds. 11/26/19 21:06 - Medical Decision Making 11/26/19 21:07 Labs pending. Resident called the gen surg at [facility] who operated on the patient, and he is requesting a CT scan as well as transfer to [facility]. 11/26/19 22:[address] Montanez Surgeon at [facility]; he agrees that labs are normal; bump in LFTs are expected post surg and that lactic is normal; pt has no pain at this time, she is afebrile, and she feels better at this time. He agrees she is stable to go home. She can follow at [facility] ER if she gets worse, otherwise at surgical clinic on Mon or (as scheduled) pt has paperwork and showed me the phone #. 11/27/19 00:11 CT scan normal; dilatation of CBD; considered to be normal post surgical; Pt has possible infiltrate/scarring of lower lobes of her lungs. She has no WBC count and no sob or cough or sputum production and O2sat normal
[2019-11-26 21:06] LABS: BASO % 0.9 % (0-2.0); HEMATOCRIT 37.8 % (32.4-45.2); HEMOGLOBIN 12.9 GM/dL (10.7-15.3); LYMPH % 26.1 % (8-40); MCH 30.5 pg (25.7-33.7); MCHC 34.1 g/dl (32.0-36.0); MEAN CELL VOLUME 89.3 fl (80-96); MEAN PLT VOLUME 9.1 fl (7.5-11.1); MONO % 7.9 % (3.8-10.2); NEUT % 61.1 % (42.8-82.8); PLATELET COUNT 272 K/MM3 (134-434); RBC 4.24 M/mm3 (3.60-5.2); RDW 13.3 % (11.6-15.6); WHITE BLOOD COUNT 7.1 K/mm3 (4.0-10.0)
[2019-11-26 22:07] LABS: ALBUMIN 3.7 g/dl (3.4-5.0); BILIRUBIN,TOTAL 0.4 mg/dL (0.2-1); BLOOD UREA NITROGEN 14.5 mg/dL (7-18); CALCIUM 9.2 mg/dL (8.5-10.1); CREATININE 0.7 mg/dL (0.55-1.3); POTASSIUM 4.2 mmol/L (3.5-5.1); TOT PROT 6.9 g/dl (6.4-8.2)
[2019-11-26] MEDS ORDERED: GLYCERIN 1 RECTAL SUPPOSITORY, ADULT PR ONE (22:47)
[2019-11-26] MEDS ORDERED: GLYCERIN 1 RECTAL SUPPOSITORY, PEDIATRIC RC ONE (23:12)
== END 2019-11-27 00:05 | disposition home or self-care (01) ==
LOC: JER 18:48
DX: K59.00 Constipation, unspecified (principal); R10.9 Unspecified abdominal pain; Z98.890 Other specified postprocedural states; Z90.49 Acquired absence of other specified parts of digestive tract
CPT/HCPCS: 36415; 74177-TC; 80053; 83605; 85025; 87040; 99285-25; Q9967

== ENCOUNTER 2021-12-06 21:43 | Emergency (ER) | payer OTHER ==
[2021-12-06 21:51] VITALS: BP 121/77; PULSE 88; TEMP 97.8; BMI 24.6
[2021-12-07] MEDS ORDERED: IBUPROFEN 600 MG TABLET (FP) PO ONE ×2 (00:07→00:08)
== END 2021-12-07 01:43 | disposition home or self-care (01) ==
LOC: JERFT 21:43
DX: L03.011 Cellulitis of right finger (principal)
CPT/HCPCS: 73140-TC-RT-FY; 99283-25

== ENCOUNTER 2022-03-28 10:46 | Emergency (ER) | payer OTHER ==
[2022-03-28 11:08] VITALS: BP 116/68; PULSE 87; TEMP 98.4; BMI 24.0
== END 2022-03-28 14:13 | disposition home or self-care (01) ==
LOC: JER 10:46
DX: R05.1 Acute cough (principal)
CPT/HCPCS: 71046-TC-FY; 99284-25; C9803-CS; U0003; U0005

== ENCOUNTER 2022-05-06 09:44 | Emergency (ER) | payer OTHER ==
[2022-05-06 10:08] VITALS: BP 111/73; PULSE 96; RESP 18; TEMP 98.6; BMI 23.8
== END 2022-05-06 12:20 | disposition home or self-care (01) ==
LOC: JER 09:44
DX: U07.1 COVID-19 (principal)
CPT/HCPCS: 0241U-QW; 71046-TC-FY; 93005; 93010; 99284-25

== ENCOUNTER 2022-07-05 12:45 | Emergency (ER) | payer OTHER ==
[2022-07-05 13:08] VITALS: BP 109/68; PULSE 88; RESP 18; TEMP 98.2; BMI 24.7
[2022-07-05] MEDS ORDERED: SODIUM CHLORIDE 0.9% 500 ML INFUS.BAG IV ONE (14:37)
[2022-07-05] MEDS ORDERED: MECLIZINE HCL 25 MG TABLET (FP) PO ONE (14:37)
[2022-07-05] MEDS ORDERED: ONDANSETRON 4 MG/2 ML VIAL IVPUSH ONE (14:37)
[2022-07-05] MEDS ORDERED: ONDANSETRON 4 MG/2 ML VIAL ONE (15:10)
[2022-07-05] MEDS ORDERED: MECLIZINE HCL 25 MG TABLET (FP) ONE (15:10)
[2022-07-05 16:39] LABS: BASO % 0.4 % (0-2.0); EOS % 2.3 % (0-4.5); HEMATOCRIT 39.9 % (32.4-45.2); HEMOGLOBIN 13.3 GM/dL (10.7-15.3); LYMPH % 30.4 % (8-40); MCH 30.4 pg (25.7-33.7); MCHC 33.3 g/dl (32.0-36.0); MEAN CELL VOLUME 91.2 fl (80-96); MEAN PLT VOLUME 8.4 fl (7.5-11.1); MONO % 5.4 % (3.8-10.2); NEUT % 61.5 % (42.8-82.8); PLATELET COUNT 263 10^3/uL (134-434); RBC 4.38 M/mm3 (3.60-5.2); RDW 13.7 % (11.6-15.6); WHITE BLOOD COUNT 6.6 K/mm3 (4.0-10.0)
[2022-07-05 16:56] LABS: CHLORIDE 107 mmol/L (98-107); SODIUM 142 mmol/L (136-145)
[2022-07-05 16:59] LABS: ALBUMIN 3.9 g/dl (3.4-5.0); ANION GAP 6 MMOL/L (8-16); CALCIUM 8.9 mg/dL (8.5-10.1); CO2 29 mmol/L (21-32); GLUCOSE,RANDOM 87 mg/dL (74-106); MAGNESIUM 2.3 mg/dL (1.8-2.4)
[2022-07-05 17:01] LABS: EPI CELLS 3 /uL (0-25.1); HYALINE CASTS 0 /uL (0-3.1); URINE APPEARANCE CLEAR; URINE BACTERIA 15 /uL (0-1359); URINE BILIRUBIN NEGATIVE (NEGATIVE); URINE COLOR YELLOW; URINE GLUCOSE (UA) NEGATIVE (NEGATIVE); URINE KETONE NEGATIVE (NEGATIVE); URINE LEUK ESTERASE TRACE (NEGATIVE); URINE NITRITE NEGATIVE (NEGATIVE); URINE PROTEIN NEGATIVE (NEGATIVE); URINE RBC 4 /uL (0-23.9); URINE UROBILINOGEN 0.2 mg/dL (0.2-1.0); URINE WBC 4 /uL (0-25.8)
[2022-07-05 17:02] LABS: CREATININE 0.7 mg/dL (0.55-1.3); SGOT/AST 23 U/L (15-37); SGPT/ALT 35 U/L (13-61)
[2022-07-05 17:04] LABS: BILIRUBIN,TOTAL 0.5 mg/dL (0.2-1)
[2022-07-05 17:05] LABS: TOT PROT 7.1 g/dl (6.4-8.2)
[2022-07-05 17:06] LABS: ALK PHOS 149 U/L (45-117)
== END 2022-07-05 18:33 | disposition home or self-care (01) ==
LOC: JER 12:45
PROC: 3E033GC Introduction of Other Therapeutic Substance into Peripheral Vein, Percutaneous Approach (ICD-10-PCS; principal; 2022-07-05)
DX: R42 Dizziness and giddiness (principal)
CPT/HCPCS: 36415; 70450-TC; 71045-TC-FY; 80053; 81003; 83735; 84484; 85025; 87086; 93005; 93010; 99285-25

== ENCOUNTER 2022-12-21 10:33 | Emergency (ER) | payer OTHER ==
[2022-12-21 10:55] VITALS: BP 103/54; PULSE 83; RESP 16; TEMP 98.5; BMI 23.8
[2022-12-21] MEDS ORDERED: IBUPROFEN 600 MG TABLET (FP) PO ONE ×2 (11:23→11:35)
[2022-12-21] MEDS: BENZONATATE 200 MG CAPSULE PO ONE ×2 (11:41)
== END 2022-12-21 12:10 | disposition home or self-care (01) ==
LOC: JERFT 10:33
DX: J06.9 Acute upper respiratory infection, unspecified (principal); R05.1 Acute cough; Z20.822 Contact with and (suspected) exposure to COVID-19
CPT/HCPCS: 0241U-QW; 26055; 71046-TC-FY; 99284-25

== ENCOUNTER 2023-01-10 08:47 | Emergency (ER) | payer OTHER ==
[2023-01-10 08:52] VITALS: BP 129/65; PULSE 78; RESP 18; TEMP 97.7; BMI 24.2
[2023-01-10] MEDS ORDERED: KETOROLAC TROMETHAMINE 30 MG/1 ML VIAL IM ONE (10:16)
[2023-01-10] MEDS ORDERED: LIDOCAINE 5% TOPICAL PATCH TP ONE (10:16)
[2023-01-10] MEDS ORDERED: LIDOCAINE 5% TOPICAL PATCH ONE (10:19)
[2023-01-10] MEDS ORDERED: KETOROLAC TROMETHAMINE 30 MG/1 ML VIAL ONE (10:19)
[2023-01-10 10:28] LABS: EPI CELLS 13 /uL (0-25.1); HYALINE CASTS 1 /uL (0-3.1); URINE APPEARANCE CLEAR; URINE BACTERIA 189 /uL (0-1359); URINE BILIRUBIN NEGATIVE (NEGATIVE); URINE COLOR YELLOW; URINE GLUCOSE (UA) NEGATIVE (NEGATIVE); URINE KETONE NEGATIVE (NEGATIVE); URINE LEUK ESTERASE 2+ (NEGATIVE); URINE NITRITE NEGATIVE (NEGATIVE); URINE PROTEIN NEGATIVE (NEGATIVE); URINE RBC 6 /uL (0-23.9); URINE UROBILINOGEN 0.2 mg/dL (0.2-1.0); URINE WBC 33 /uL (0-25.8)
[2023-01-10 11:07] LABS: BASO % 0.3 % (0-2.0); EOS % 2.1 % (0-4.5); HEMATOCRIT 37.5 % (32.4-45.2); HEMOGLOBIN 12.8 GM/dL (10.7-15.3); MCH 30.5 pg (25.7-33.7); MCHC 34.2 g/dl (32.0-36.0); MEAN CELL VOLUME 89.1 fl (80-96); MEAN PLT VOLUME 8.7 fl (7.5-11.1); MONO % 6.2 % (3.8-10.2); NEUT % 66.4 % (42.8-82.8); PLATELET COUNT 258 10^3/uL (134-434); RBC 4.21 M/mm3 (3.60-5.2); WHITE BLOOD COUNT 6.6 K/mm3 (4.0-10.0)
[2023-01-10 11:17] LABS: BLOOD UREA NITROGEN 16.4 mg/dL (7-18); CALCIUM 9.5 mg/dL (8.5-10.1)
[2023-01-10 11:18] LABS: ALBUMIN 3.7 g/dl (3.4-5.0)
[2023-01-10 11:21] LABS: CREATININE 0.6 mg/dL (0.55-1.3)
[2023-01-10 11:22] LABS: BILIRUBIN,TOTAL 0.5 mg/dL (0.2-1); TOT PROT 7.2 g/dl (6.4-8.2)
== END 2023-01-10 11:54 | disposition home or self-care (01) ==
LOC: JERFT 08:47 → JER 08:47 → JERFT 11:54
PROC: 3E023GC Introduction of Other Therapeutic Substance into Muscle, Percutaneous Approach (ICD-10-PCS; principal; 2023-01-10)
DX: S39.012A Strain of muscle, fascia and tendon of lower back, initial encounter (principal); N30.00 Acute cystitis without hematuria; Y99.9 Unspecified external cause status
CPT/HCPCS: 36415; 72128-TC; 72131-TC; 80053; 81003; 85025; 87086; 99284-25

== ENCOUNTER 2023-02-01 18:28 | Emergency (ER) | payer OTHER ==
[2023-02-01 18:35] VITALS: BP 137/75; PULSE 75; RESP 16; TEMP 98.5; BMI 24.2
[2023-02-01] MEDS ORDERED: MECLIZINE HCL 25 MG TABLET (FP) PO ONE (19:18)
[2023-02-01] MEDS ORDERED: ACETAMINOPHEN 1000 MG/100 ML BAG IVPB ONE (19:18)
[2023-02-01] MEDS ORDERED: LACTATED RINGERS SOLUTION 1000 ML INFUS.BAG IV ONE (19:18)
[2023-02-01] MEDS ORDERED: MECLIZINE HCL 25 MG TABLET (FP) ONE (19:26)
[2023-02-01] MEDS ORDERED: ACETAMINOPHEN INJECTION 100 ML IVPB ONE (19:26)
[2023-02-01 19:34] LABS: BASO % 0.8 % (0-2.0); EOS % 2.3 % (0-4.5); HEMATOCRIT 37.3 % (32.4-45.2); HEMOGLOBIN 12.9 GM/dL (10.7-15.3); LYMPH % 27.1 % (8-40); MCH 30.7 pg (25.7-33.7); MCHC 34.5 g/dl (32.0-36.0); MEAN CELL VOLUME 88.8 fl (80-96); MEAN PLT VOLUME 8.6 fl (7.5-11.1); MONO % 8.3 % (3.8-10.2); NEUT % 61.5 % (42.8-82.8); PLATELET COUNT 258 10^3/uL (134-434); RDW 13.7 % (11.6-15.6); WHITE BLOOD COUNT 6.7 K/mm3 (4.0-10.0)
[2023-02-01 19:56] LABS: ALBUMIN 3.7 g/dl (3.4-5.0); BLOOD UREA NITROGEN 16.9 mg/dL (7-18)
[2023-02-01 19:59] LABS: CREATININE 0.8 mg/dL (0.55-1.3)
[2023-02-01 20:01] LABS: BILIRUBIN,TOTAL 0.4 mg/dL (0.2-1); TOT PROT 6.9 g/dl (6.4-8.2)
== END 2023-02-01 21:47 | disposition home or self-care (01) ==
LOC: JER 18:28
PROC: 3E033NZ Introduction of Analgesics, Hypnotics, Sedatives into Peripheral Vein, Percutaneous Approach (ICD-10-PCS; principal; 2023-02-01)
DX: R42 Dizziness and giddiness (principal); Z20.822 Contact with and (suspected) exposure to COVID-19
CPT/HCPCS: 0241U-QW; 36415; 70450-TC; 80053; 84484; 85025; 93005; 93010; 99285-25

== ENCOUNTER 2023-04-11 07:41 | Emergency (ER) | payer OTHER ==
[2023-04-11 08:21] VITALS: BMI 28.0
[2023-04-11] MEDS ORDERED: MECLIZINE HCL 25 MG TABLET (FP) PO ONE (08:31)
[2023-04-11] MEDS ORDERED: MECLIZINE HCL 25 MG TABLET (FP) ONE ×2 (08:46→08:48)
[2023-04-11 08:50] LABS: BASO % 0.7 % (0-2.0); EOS % 1.6 % (0-4.5); HEMATOCRIT 38.6 % (32.4-45.2); HEMOGLOBIN 12.7 GM/dL (10.7-15.3); LYMPH % 24.8 % (8-40); MCH 29.9 pg (25.7-33.7); MEAN CELL VOLUME 90.7 fl (80-96); MEAN PLT VOLUME 8.7 fl (7.5-11.1); MONO % 6.8 % (3.8-10.2); NEUT % 66.1 % (42.8-82.8); PLATELET COUNT 270 10^3/uL (134-434); RBC 4.26 M/mm3 (3.60-5.2); RDW 13.7 % (11.6-15.6)
[2023-04-11 09:07] LABS: POTASSIUM 4.2 mmol/L (3.5-5.1)
[2023-04-11 09:11] LABS: ALBUMIN 3.8 g/dl (3.4-5.0); BLOOD UREA NITROGEN 14.4 mg/dL (7-18); CALCIUM 9.2 mg/dL (8.5-10.1)
[2023-04-11 09:14] LABS: CREATININE 0.6 mg/dL (0.55-1.3)
[2023-04-11 09:15] LABS: BILIRUBIN,TOTAL 0.5 mg/dL (0.2-1)
[2023-04-11 10:56] LABS: EPI CELLS 5 /uL (0-25.1); HYALINE CASTS 0 /uL (0-3.1); URINE APPEARANCE CLEAR; URINE BACTERIA 21 /uL (0-1359); URINE BILIRUBIN NEGATIVE (NEGATIVE); URINE COLOR YELLOW; URINE GLUCOSE (UA) NEGATIVE (NEGATIVE); URINE KETONE NEGATIVE (NEGATIVE); URINE LEUK ESTERASE 1+ (NEGATIVE); URINE NITRITE NEGATIVE (NEGATIVE); URINE PROTEIN NEGATIVE (NEGATIVE); URINE RBC 7 /uL (0-23.9); URINE UROBILINOGEN 0.2 mg/dL (0.2-1.0); URINE WBC 6 /uL (0-25.8)
[2023-04-11] MEDS ORDERED: ASPIRIN 81 MG CHEWABLE TABLETS PO ONE (11:12)
[2023-04-11] MEDS ORDERED: ASPIRIN 81 MG CHEWABLE TABLETS ONE (11:42)
[2023-04-11 12:24] VITALS: BP 129/64; PULSE 80; RESP 18; TEMP 98.1
== END 2023-04-11 13:13 | disposition home or self-care (01) ==
LOC: JER 07:41
DX: R42 Dizziness and giddiness (principal); R11.10 Vomiting, unspecified
CPT/HCPCS: 36415; 71045-TC-FY; 80053; 81003; 84484; 85025; 87086; 93005; 93010; 99285-25

== ENCOUNTER 2023-05-28 04:30 | Day surgery (SDC) | payer OTHER ==
[2023-05-26 14:13] VITALS: BMI 24.2
[2023-05-28] MEDS ORDERED: oxyCODONE HCL 5 MG TABLET PO PRN ×2 (13:07)
[2023-05-28] MEDS ORDERED: ONDANSETRON 4 MG/2 ML VIAL IVPUSH PRN ×2 (13:07→15:15)
[2023-05-28] MEDS ORDERED: LACTATED RINGERS SOLUTION 1,000 ML IV SCH ×2 (13:15→15:15)
[2023-05-28] MEDS ORDERED: PROPOFOL 20 ML ONE (13:24)
[2023-05-28] MEDS ORDERED: MIDAZOLAM HCL 2 MG/2 ML SINGLE DOSE VIAL ONE (13:24)
[2023-05-28] MEDS ORDERED: ceFAZolin SODIUM 1 GM VIAL IVPB ONE (14:30)
[2023-05-28 18:03] VITALS: RESP 18
[2023-05-28 19:26] VITALS: BP 120/78; PULSE 78; TEMP 98
== END 2023-05-28 17:45 | disposition home or self-care (01) ==
LOC: JASU-SURG 04:30
PROVIDERS: ATTEND Obstetrics & Gynecology
PROC: 0UDB8ZX Extraction of Endometrium, Via Natural or Artificial Opening Endoscopic, Diagnostic (ICD-10-PCS; principal; 2023-05-28 14:00)
DX: N95.0 Postmenopausal bleeding (principal)
CPT/HCPCS: 88305-TC; 94760

== ENCOUNTER 2023-10-04 09:52 | Emergency (ER) | payer OTHER ==
[2023-10-04 09:56] VITALS: RESP 18; BMI 24.0
[2023-10-04] MEDS ORDERED: ONDANSETRON 4 MG/2 ML VIAL IVPUSH ONE (10:35)
[2023-10-04] MEDS ORDERED: SODIUM CHLORIDE 0.9% 500 ML INFUS.BAG IV ONE (10:35)
[2023-10-04] MEDS ORDERED: ACETAMINOPHEN 1000 MG/100 ML BAG IVPB ONE (10:35)
[2023-10-04] MEDS ORDERED: FAMOTIDINE 20 MG TABLET PO ONE (10:35)
[2023-10-04] MEDS ORDERED: MAG HYDROX/AL HYDROX/SIMETH 30 ML UNIT-DOSE CUP PO ONE (10:35)
[2023-10-04] MEDS ORDERED: ACETAMINOPHEN INJECTION 100 ML IVPB ONE (11:54)
[2023-10-04] MEDS ORDERED: ONDANSETRON 4 MG/2 ML VIAL ONE (11:54)
[2023-10-04] MEDS ORDERED: FAMOTIDINE 20 MG/50 ML IVPB 20 MG/50 ML MG IVPB ONE (11:54)
[2023-10-04] MEDS ORDERED: MAG HYDROX/AL HYDROX/SIMETH 30 ML UNIT-DOSE CUP ONE (11:54)
[2023-10-04 11:55] LABS: BASO % 0.6 % (0-2.0); EOS % 1.6 % (0-4.5); HEMATOCRIT 40.9 % (32.4-45.2); HEMOGLOBIN 13.7 GM/dL (10.7-15.3); LYMPH % 25.4 % (8-40); MCH 30.4 pg (25.7-33.7); MCHC 33.5 g/dl (32.0-36.0); MEAN CELL VOLUME 90.7 fl (80-96); MEAN PLT VOLUME 8.3 fl (7.5-11.1); MONO % 5.8 % (3.8-10.2); NEUT % 66.6 % (42.8-82.8); PLATELET COUNT 277 10^3/uL (134-434); RDW 13.7 % (11.6-15.6); WHITE BLOOD COUNT 6.2 K/mm3 (4.0-10.0)
[2023-10-04 12:10] LABS: POTASSIUM 4.3 mmol/L (3.5-5.1)
[2023-10-04 12:12] LABS: CALCIUM 9.3 mg/dL (8.5-10.1)
[2023-10-04 12:13] LABS: BLOOD UREA NITROGEN 14.8 mg/dL (7-18)
[2023-10-04 12:16] LABS: CREATININE 0.6 mg/dL (0.55-1.3)
[2023-10-04 12:17] LABS: BILIRUBIN,TOTAL 0.6 mg/dL (0.2-1); TOT PROT 7.4 g/dl (6.4-8.2)
[2023-10-04 12:45] LABS: PH,URINE 5.5 (5.0-8.0); URINE APPEARANCE CLEAR; URINE BILIRUBIN NEGATIVE (NEGATIVE); URINE COLOR YELLOW; URINE GLUCOSE (UA) NEGATIVE (NEGATIVE); URINE KETONE NEGATIVE (NEGATIVE); URINE LEUK ESTERASE NEGATIVE (NEGATIVE); URINE NITRITE NEGATIVE (NEGATIVE); URINE PROTEIN NEGATIVE (NEGATIVE); URINE UROBILINOGEN 0.2 mg/dL (0.2-1.0)
[2023-10-04 17:19] VITALS: BP 118/62; PULSE 64; TEMP 98
== END 2023-10-04 17:33 | disposition home or self-care (01) ==
LOC: JER 09:52
PROC: 3E033NZ Introduction of Analgesics, Hypnotics, Sedatives into Peripheral Vein, Percutaneous Approach (ICD-10-PCS; principal; 2023-10-04)
PROC: 3E033GC Introduction of Other Therapeutic Substance into Peripheral Vein, Percutaneous Approach (ICD-10-PCS; 2023-10-04)
DX: R11.2 Nausea with vomiting, unspecified (principal); R10.13 Epigastric pain; R42 Dizziness and giddiness; K29.00 Acute gastritis without bleeding; K76.0 Fatty (change of) liver, not elsewhere classified
CPT/HCPCS: 36415; 76705-TC; 80053; 81003; 83690; 84484; 85025; 87086; 93005; 93010; 99285-25

== ENCOUNTER 2023-12-14 11:14 | Emergency (ER) | payer OTHER ==
[2023-12-14 11:20] VITALS: BP 123/63; TEMP 97.8; BMI 29.7
[2023-12-14 11:48] VITALS: PULSE 79; RESP 18
[2023-12-14 12:47] LABS: BASO % 0.9 % (0-2.0); EOS % 0.6 % (0-4.5); HEMATOCRIT 38.6 % (32.4-45.2); LYMPH % 17.6 % (8-40); MCH 30.8 pg (25.7-33.7); MCHC 33.8 g/dl (32.0-36.0); MEAN CELL VOLUME 91.1 fl (80-96); MEAN PLT VOLUME 8.3 fl (7.5-11.1); MONO % 4.8 % (3.8-10.2); NEUT % 76.1 % (42.8-82.8); PLATELET COUNT 298 10^3/uL (134-434); RBC 4.23 M/mm3 (3.60-5.2); RDW 13.5 % (11.6-15.6); WHITE BLOOD COUNT 7.8 K/mm3 (4.0-10.0)
[2023-12-14 12:49] LABS: INR 1.11 (0.83-1.09); PROTHROMBIN TIME (PATIENT) 12.9 SEC (9.7-13.0)
[2023-12-14 12:52] LABS: ACTIVATED PTT 29.7 SECONDS (25.2-36.5)
[2023-12-14] MEDS ORDERED: FAMOTIDINE 20 MG/50 ML IVPB 20 MG/50 ML MG IVPB ONE (13:03)
[2023-12-14] MEDS ORDERED: MAG HYDROX/AL HYDROX/SIMETH 30 ML UNIT-DOSE CUP ONE (13:03)
[2023-12-14] MEDS ORDERED: ONDANSETRON 4 MG/2 ML VIAL ONE (13:03)
[2023-12-14] MEDS: ONDANSETRON 4 MG/2 ML VIAL IVPUSH ONE (13:13)
[2023-12-14] MEDS: MAG HYDROX/AL HYDROX/SIMETH 30 ML UNIT-DOSE CUP PO ONE (13:13)
[2023-12-14] MEDS: FAMOTIDINE 20 MG/50 ML IVPB 20 MG/50 ML MG IVPB ONE (13:13)
[2023-12-14] MEDS: LIDOCAINE 4% PATCH TP ONE (13:13)
[2023-12-14] MEDS: SODIUM CHLORIDE 0.9% 500 ML INFUS.BAG IV ONE (13:24)
[2023-12-14 13:34] LABS: POTASSIUM 4.2 mmol/L (3.5-5.1)
[2023-12-14 13:36] LABS: ALBUMIN 3.7 g/dl (3.4-5.0); BLOOD UREA NITROGEN 17.7 mg/dL (7-18); CALCIUM 9.2 mg/dL (8.5-10.1)
[2023-12-14 13:40] LABS: CREATININE 0.6 mg/dL (0.55-1.3)
[2023-12-14 13:41] LABS: BILIRUBIN,TOTAL 0.5 mg/dL (0.2-1); TOT PROT 7.1 g/dl (6.4-8.2)
[2023-12-14 14:06] LABS: PH,URINE 5.5 (5.0-8.0); URINE APPEARANCE CLEAR; URINE BILIRUBIN NEGATIVE (NEGATIVE); URINE COLOR YELLOW; URINE GLUCOSE (UA) NEGATIVE (NEGATIVE); URINE KETONE NEGATIVE (NEGATIVE); URINE LEUK ESTERASE NEGATIVE (NEGATIVE); URINE NITRITE NEGATIVE (NEGATIVE); URINE PROTEIN NEGATIVE (NEGATIVE); URINE UROBILINOGEN 0.2 mg/dL (0.2-1.0)
[2023-12-14] MEDS ORDERED: LIDOCAINE PATCH REMOVAL MC SCH (22:00)
== END 2023-12-14 16:24 | disposition home or self-care (01) ==
LOC: JER 11:14
PROC: 3E033GC Introduction of Other Therapeutic Substance into Peripheral Vein, Percutaneous Approach (ICD-10-PCS; principal; 2023-12-14)
PROC: 3E033GC Introduction of Other Therapeutic Substance into Peripheral Vein, Percutaneous Approach (ICD-10-PCS; 2023-12-14)
DX: R11.2 Nausea with vomiting, unspecified (principal); R10.13 Epigastric pain; K29.70 Gastritis, unspecified, without bleeding; Z20.822 Contact with and (suspected) exposure to COVID-19
CPT/HCPCS: 0241U-QW; 36415; 71046-TC-FY; 74177-TC; 80053; 81003; 83690; 84484; 85025; 85610; 85730; 87086; 93005; 93010; 99285-25; Q9967

== ENCOUNTER 2024-02-01 15:13 | Emergency (ER) | payer OTHER ==
[2024-02-01 15:25] VITALS: RESP 18; BMI 37.5
[2024-02-01 16:15] LABS: BASO % 0.2 % (0-2.0); HEMATOCRIT 38.7 % (32.4-45.2); HEMOGLOBIN 13.1 GM/dL (10.7-15.3); LYMPH % 14.7 % (8-40); MCH 30.6 pg (25.7-33.7); MCHC 33.9 g/dl (32.0-36.0); MEAN PLT VOLUME 8.2 fl (7.5-11.1); MONO % 4.4 % (3.8-10.2); NEUT % 79.7 % (42.8-82.8); PLATELET COUNT 249 10^3/uL (134-434); RDW 13.4 % (11.6-15.6); WHITE BLOOD COUNT 6.2 K/mm3 (4.0-10.0)
[2024-02-01 16:18] LABS: EPI CELLS 4 /uL (0-25.1); HYALINE CASTS 0 /uL (0-3.1); PH,URINE 5.5 (5.0-8.0); URINE APPEARANCE CLEAR; URINE BACTERIA 7 /uL (0-1359); URINE BILIRUBIN NEGATIVE (NEGATIVE); URINE COLOR YELLOW; URINE GLUCOSE (UA) NEGATIVE (NEGATIVE); URINE KETONE NEGATIVE (NEGATIVE); URINE LEUK ESTERASE TRACE (NEGATIVE); URINE NITRITE NEGATIVE (NEGATIVE); URINE PROTEIN NEGATIVE (NEGATIVE); URINE RBC 12 /uL (0-23.9); URINE WBC 6 /uL (0-25.8)
[2024-02-01 16:22] LABS: INR 1.03 (0.83-1.09); PROTHROMBIN TIME (PATIENT) 11.6 SEC (9.7-13.0)
[2024-02-01 16:24] LABS: ACTIVATED PTT 30.4 SECONDS (25.2-36.5)
[2024-02-01] MEDS ORDERED: FAMOTIDINE 20 MG/50 ML IVPB 20 MG/50 ML MG IVPB ONE (16:29)
[2024-02-01] MEDS ORDERED: MAG HYDROX/AL HYDROX/SIMETH 30 ML UNIT-DOSE CUP ONE (16:29)
[2024-02-01] MEDS ORDERED: ONDANSETRON 4 MG/2 ML VIAL ONE (16:29)
[2024-02-01 16:39] LABS: BLOOD UREA NITROGEN 17.8 mg/dL (7-18); CALCIUM 8.5 mg/dL (8.5-10.1); CREATININE 0.6 mg/dL (0.55-1.3)
[2024-02-01] MEDS: LACTATED RINGERS SOLUTION 1000 ML INFUS.BAG IV ONE (16:39)
[2024-02-01] MEDS: FAMOTIDINE 20 MG/50 ML IVPB 20 MG/50 ML MG IVPB ONE (16:39)
[2024-02-01] MEDS: ONDANSETRON 4 MG/2 ML VIAL IVPUSH ONE (16:39)
[2024-02-01] MEDS: MAG HYDROX/AL HYDROX/SIMETH 30 ML UNIT-DOSE CUP PO ONE (16:39)
[2024-02-01 16:40] LABS: ALBUMIN 3.7 g/dl (3.4-5.0); MAGNESIUM 1.9 mg/dL (1.8-2.4)
[2024-02-01 16:44] LABS: BILIRUBIN,TOTAL 0.8 mg/dL (0.2-1)
[2024-02-01 16:45] LABS: TOT PROT 6.9 g/dl (6.4-8.2)
[2024-02-01] MEDS: ACETAMINOPHEN 1000 MG/100 ML BAG IVPB ONE (17:10)
[2024-02-01] MEDS ORDERED: ACETAMINOPHEN INJECTION 100 ML IVPB ONE (17:10)
[2024-02-01 17:51] VITALS: BP 104/59; PULSE 71; TEMP 98.5
== END 2024-02-01 18:07 | disposition home or self-care (01) ==
LOC: JER 15:13
PROC: 3E033GC Introduction of Other Therapeutic Substance into Peripheral Vein, Percutaneous Approach (ICD-10-PCS; principal; 2024-02-01)
PROC: 3E030NZ Introduction of Analgesics, Hypnotics, Sedatives into Peripheral Vein, Open Approach (ICD-10-PCS; 2024-02-01)
PROC: 3E030NZ Introduction of Analgesics, Hypnotics, Sedatives into Peripheral Vein, Open Approach (ICD-10-PCS; 2024-02-01)
DX: R11.2 Nausea with vomiting, unspecified (principal); R19.7 Diarrhea, unspecified; R10.13 Epigastric pain; R68.83 Chills (without fever); Z20.822 Contact with and (suspected) exposure to COVID-19
CPT/HCPCS: 0241U-QW; 36415; 71045-TC-FY; 80053; 81003; 83690; 83735; 84484; 85025; 85610; 85730; 86850; 86900; 86901; 87086; 93005; 93010; 99285-25; J0131

== ENCOUNTER 2024-05-24 08:33 | Emergency (ER) | payer OTHER ==
[2024-05-24 08:40] VITALS: BP 117/74; PULSE 84; RESP 17; TEMP 98.4; BMI 26.4
[2024-05-24] MEDS ORDERED: LIDOCAINE 5% TOPICAL PATCH ONE (08:51)
[2024-05-24] MEDS ORDERED: IBUPROFEN 400 MG TABLET (FP) PO ONE (08:53)
[2024-05-24] MEDS: LIDOCAINE 5% TOPICAL PATCH TP ONE (09:02)
[2024-05-24] MEDS: IBUPROFEN 400 MG TABLET (FP) PO ONE (09:02)
[2024-05-24] MEDS ORDERED: LIDOCAINE PATCH REMOVAL MC SCH (22:00)
== END 2024-05-24 09:44 | disposition home or self-care (01) ==
LOC: JERFT 08:33
DX: S39.012A Strain of muscle, fascia and tendon of lower back, initial encounter (principal); X58.XXXA Exposure to other specified factors, initial encounter
CPT/HCPCS: 99283-25

== ENCOUNTER 2024-05-26 15:04 | Emergency (ER) | payer OTHER ==
[2024-05-26 15:13] VITALS: BP 125/79; PULSE 80; RESP 17; TEMP 97.9; BMI 28.3
[2024-05-26 16:27] LABS: PH,URINE 5.5 (5.0-8.0); URINE APPEARANCE CLEAR; URINE BILIRUBIN NEGATIVE (NEGATIVE); URINE COLOR YELLOW; URINE GLUCOSE (UA) NEGATIVE (NEGATIVE); URINE KETONE NEGATIVE (NEGATIVE); URINE LEUK ESTERASE NEGATIVE (NEGATIVE); URINE NITRITE NEGATIVE (NEGATIVE); URINE PROTEIN NEGATIVE (NEGATIVE); URINE UROBILINOGEN 0.2 mg/dL (0.2-1.0)
[2024-05-26] MEDS ORDERED: LIDOCAINE 4% PATCH TP ONE (17:24)
[2024-05-26] MEDS ORDERED: METHOCARBAMOL 500 MG TABLET ONE (17:25)
[2024-05-26] MEDS ORDERED: KETOROLAC TROMETHAMINE 15 MG/ML VIAL ONE (17:25)
[2024-05-26] MEDS: KETOROLAC TROMETHAMINE 15 MG/ML VIAL IM ONE (17:30)
[2024-05-26] MEDS: LIDOCAINE 5% TOPICAL PATCH TP ONE (17:30)
[2024-05-26] MEDS: METHOCARBAMOL 500 MG TABLET PO ONE (17:31)
[2024-05-26] MEDS ORDERED: LIDOCAINE PATCH REMOVAL MC SCH (22:00)
== END 2024-05-26 18:18 | disposition home or self-care (01) ==
LOC: JERFT 15:04
PROC: 3E0133Z Introduction of Anti-inflammatory into Subcutaneous Tissue, Percutaneous Approach (ICD-10-PCS; principal; 2024-05-26)
DX: M54.50 Low back pain, unspecified (principal)
CPT/HCPCS: 72110-TC-FY; 81003; 87086; 99284-25